=== PATIENT | male | born 1980 | race Two or more races ===

== ENCOUNTER 2019-01-18 19:16 | Emergency (ER) | payer OTHER ==
[~2019-01-18] VITALS: Ht 180.3 cm; Wt 78.9 kg
== END 2019-01-18 22:30 | disposition home or self-care (01) ==
LOC: ER 19:16
DX: J06.9 Acute upper respiratory infection, unspecified (principal)

== ENCOUNTER 2020-01-06 06:02 | Emergency (ER) | payer OTHER ==
[~2020-01-06] VITALS: Ht 180.3 cm; Wt 83.9 kg
[2020-01-06] MEDS ORDERED: MOTRIN PM CAPL1 EACH (06:22)
[2020-01-06] MEDS ORDERED: CLEOCIN HCL300 MG (06:22)
[2020-01-06] MEDS ORDERED: CLEOCIN HCL300 MG PO (08:11)
[2020-01-06] MEDS ORDERED: IBUPROFEN800 MG PO (08:13)
== END 2020-01-06 09:28 ==
LOC: ER 06:02
DX: K04.7 Periapical abscess without sinus (principal)

== ENCOUNTER → 2022-03-10 | Emergency (ER) | payer OTHER ==
[~2022-03-10] VITALS: Ht 180.3 cm; Wt 83.9 kg
[~2022-03-10] MED LIST: CLEOCIN HCL300 MG; CLEOCIN HCL300 MG PO; IBUPROFEN800 MG PO; KETO10TA2 PO; MOTRIN PM CAPL1 EACH; NORFLEX100MG PO
== END | disposition home or self-care (01) ==
LOC: ER 09:31
DX: M54.50 Low back pain, unspecified (principal); R25.2 Cramp and spasm; Z91.013 Allergy to seafood

== ENCOUNTER 2024-02-03 09:03 | Emergency (ER) | payer OTHER ==
[~2024-02-03] VITALS: Ht 180.3 cm; Wt 80.7 kg
[2024-02-03 10:21] VITALS: BP 104/64; O2SAT 100
[2024-02-03] MEDS ORDERED: NORFLEX100MG PO (10:29)
[2024-02-03] MEDS ORDERED: DICLOFENAC SODI75 MG PO (10:29)
[2024-02-03] MEDS ORDERED: KETOROLAC TROMETHAMINE 60 MG VIAL IM ONE (10:30)
[2024-02-03] MEDS ORDERED: TRIAMCINOLONE ACETONIDE 40 MG/ML VIAL IM ONE (10:30)
== END 2024-02-03 10:41 | disposition home or self-care (01) ==
LOC: ER 09:05
DX: M54.89 Other dorsalgia (principal); Z91.013 Allergy to seafood

== ENCOUNTER 2024-10-06 11:00 | Emergency (ER) | payer OTHER ==
[~2024-10-06] VITALS: Ht 177.8 cm; Wt 77.1 kg
[~2024-10-06 11:00] MED LIST changes: +DICLOFENAC SODI75 MG PO
[2024-10-06] MEDS ORDERED: ORPHENADRINE CITRATE 30 MG/ML AMPUL IM STA (11:28)
[2024-10-06] MEDS ORDERED: DEXAMETHASONE SODIUM PHOSPHATE 4 MG/ML VIAL IM STA (11:28)
[2024-10-06] MEDS ORDERED: KETOROLAC TROMETHAMINE 60 MG VIAL IM STA (11:28)
[2024-10-06] MEDS ORDERED: ORPHENADRINE CITRATE 30 MG/ML AMPUL ONE (11:35)
[2024-10-06] MEDS ORDERED: KETOROLAC TROMETHAMINE 60 MG VIAL IM ONE (11:36)
[2024-10-06] MEDS ORDERED: DEXAMETHASONE SODIUM PHOSPHATE 4 MG/ML VIAL ONE (11:37)
[2024-10-06] MEDS ORDERED: NORFLEX100MG PO (13:11)
[2024-10-06] MEDS ORDERED: KETO10TA2 PO (13:11)
== END 2024-10-06 13:28 | disposition home or self-care (01) ==
LOC: ER 11:12
DX: M25.561 Pain in right knee (principal); M25.511 Pain in right shoulder; Z91.013 Allergy to seafood